=== PATIENT | male | born 1995 | race Caucasian/White ===

== ENCOUNTER 2021-04-13 08:19 | Outpatient (CLI) | payer OTHER ==
[2021-04-17] MEDS ORDERED: EPINEPHRINE 1 MG/ML, 1ML ONE (08:16)
[2021-04-17] MEDS ORDERED: BUPIVACAINE/PF 0.5% ONE (08:16)
== END 2021-04-13 23:59 | disposition home or self-care (01) ==
LOC: STAR 08:19
PROVIDERS: ATTEND Surgery
DX: Z02.9 Encounter for administrative examinations, unspecified (principal)

== ENCOUNTER 2021-04-17 06:59 | Day surgery (SDC) | payer OTHER ==
[~2021-04-17] VITALS: Ht 170.2 cm; Wt 60.2 kg
[2021-04-17 07:15] VITALS: BP 94/61
[2021-04-17] MEDS ORDERED: LACTATED RINGERS 1,000 ML IV SCH (07:30)
[2021-04-17] MEDS ORDERED: CHLORHEXIDINE 15 ML UDC PO ONE (07:30)
[2021-04-17] MEDS ORDERED: LIDOCAINE-MPF 1%, 2ML INFIL ONE (07:30)
[2021-04-17] MEDS ORDERED: MIDAZOLAM 1 MG/ML, 2ML ONE (08:22)
[2021-04-17] MEDS ORDERED: FENTANYL PF 250 MCG/5ML ONE (08:23)
[2021-04-17] MEDS ORDERED: DEXAMETHASONE 4 MG/ML, 1ML ONE ×2 (08:31→08:58)
[2021-04-17] MEDS ORDERED: ONDANSETRON 2MG/ML, 2ML ONE (08:31)
[2021-04-17] MEDS ORDERED: CEFAZOLIN 1,000 MG ONE (08:58)
[2021-04-17] MEDS ORDERED: PROPOFOL 10 MG/ML, 20ML ONE (08:58)
[2021-04-17] MEDS ORDERED: ROCURONIUM 10MG/ML,5ML ONE (09:02)
[2021-04-17] MEDS ORDERED: KETOROLAC 30 MG/1 ML ONE (09:04)
[2021-04-17] MEDS ORDERED: MEPERIDINE/PF 25MG/0.5ML IVPush PRN (09:30)
[2021-04-17] MEDS ORDERED: PROMETHAZINE 25 MG/ML, 1ML IVPush PRN (09:30)
[2021-04-17] MEDS ORDERED: hydrALAzine 20 MG/ML, 1ML IV PRN (11:30)
[2021-04-17] MEDS ORDERED: ONDANSETRON 2MG/ML, 2ML IVPush PRN (11:30)
[2021-04-17] MEDS ORDERED: OXYcodone 5 MG/5 ML ORAL.SOL UDC PO PRN (11:30)
[2021-04-17] MEDS ORDERED: HYDROmorphone 1 MG/ML, 1ML INJ IVPush PRN (11:30)
[2021-04-17] MEDS ORDERED: ACETAMINOPHEN 325 MG TABLET PO PRN (11:30)
[2021-04-17] MEDS ORDERED: FENTANYL PF 100 MCG/2ML IV PRN (11:30)
[2021-04-17] MEDS ORDERED: LABETALOL 5MG/ML, 20ML IV PRN (11:30)
== END 2021-04-17 13:25 | disposition home or self-care (01) ==
LOC: OUT 06:59
PROVIDERS: ATTEND Surgery
DX: K40.90 Unilateral inguinal hernia, without obstruction or gangrene, not specified as recurrent (principal); F12.90 Cannabis use, unspecified, uncomplicated; Z87.891 Personal history of nicotine dependence; Z98.890 Other specified postprocedural states
CPT/HCPCS: 49650; C1781; J0171; J0690; J1100; J1885; J2250; J2405; J2704; J3010; J7120; S2900